=== PATIENT | female | born 1955 | race Caucasian/White ===

== ENCOUNTER → 2024-02-12 | Outpatient (CLI) | payer MEDICARE, OTHER ==
[~2024-02-12] MED LIST: NS 1,000 ML IV SCH
[2024-02-12 10:58] VITALS: BP 169/89
[2024-02-12 11:43] LABS: ALBUMIN 3.9 g/dL (3.4-4.8)
[2024-02-12 11:45] LABS: CALCIUM 9.6 mg/dL (8.3-10.5)
[2024-02-12 11:48] LABS: TOTAL BILIRUBIN 0.5 mg/dL (0.2-1.2)
[2024-02-12 12:58] VITALS: BP 152/91
== END ==
LOC: AMSURD 10:45
PROVIDERS: Family Medicine
DX: R19.7 Diarrhea, unspecified (principal); R53.1 Weakness
CPT/HCPCS: J7030

== ENCOUNTER 2024-06-24 08:00 | Outpatient (RCR) | payer MEDICARE, OTHER | END 2024-07-01 | disposition home or self-care (01) | LOC: PT | DX: I71.40 Abdominal aortic aneurysm, without rupture, unspecified (principal); Z98.890 Other specified postprocedural states; Z95.0 Presence of cardiac pacemaker ==